=== PATIENT | female | born 1955 | race Caucasian/White ===

== ENCOUNTER → 2017-03-09 | Outpatient (CLI) | payer BC, OTHER | LOC: RAD 15:09 | DX: Z12.31 Encounter for screening mammogram for malignant neoplasm of breast (principal) ==

== ENCOUNTER → 2018-03-28 | Outpatient (CLI) | payer BC, OTHER | LOC: RAD 00:37 | DX: Z12.31 Encounter for screening mammogram for malignant neoplasm of breast (principal) ==